=== PATIENT | male | born 1960 | race Hispanic/Latino ===

== ENCOUNTER 2022-07-05 09:55 | Emergency (ER) | payer OTHER, MEDICARE ==
[~2022-07-05] VITALS: Ht 167.6 cm; Wt 97.5 kg
[~2022-07-05 09:55] MED LIST: OMEP20TA2 PO
[2022-07-05] MEDS ORDERED: LACTATED RINGERS 1000ML 1,000 ML IV ONE (10:30)
[2022-07-05 10:31] LABS: BASOPHILS % (AUTO) 0.7 % (0.0-5.0); HEMATOCRIT 43.8 % (42-54); LYMPHOCYTES % (AUTO) 26.7 % (21.0-51.0); MEAN CORPUSCULAR HEMOGLOBIN 29.3 pg (27.0-33.0); MEAN CORPUSCULAR HGB CONC 32.4 g/dL (32.0-36.0); MEAN CORPUSCULAR VOLUME 90.3 fL (79-99); MONOCYTES % (AUTO) 6.8 % (3.0-13.0); NEUTROPHILS % (AUTO) 63.4 % (40.0-77.0); PLATELET COUNT (AUTO) 254 K/uL (130-400); RED BLOOD CELL COUNT(AUTO) 4.85 MIL/uL (4.50-6.20); RED CELL DISTRIBUTION WIDTH 13.3 % (11.0-15.5); WHITE BLOOD COUNT (AUTO) 8.5 K/uL (4.8-10.8)
[2022-07-05 10:42] LABS: CREATININE 1.6 mg/dL (0.5-1.5); POTASSIUM 3.6 mmol/L (3.5-5.1)
[2022-07-05 10:46] LABS: ALBUMIN 3.4 g/dL (3.5-5.0); TOTAL PROTEIN, SERUM 7.5 g/dL (6.0-8.3)
[2022-07-05] MEDS ORDERED: PANTOPRAZOLE 40 MG/VIAL IVP ONE (12:30)
[2022-07-05] MEDS ORDERED: PANT40TA55 PO (14:00)
[2022-07-05] MEDS ORDERED: MAG/ALUM/SIMETH 30 ML UDCUP PO ONE (14:30)
[2022-07-05] MEDS ORDERED: LIDOCAINE HCL 2% VISCOUS 15 ML UDCUP PO ONE (14:30)
[2022-07-05 14:33] VITALS: BP 143/77
== END 2022-07-05 14:47 | disposition home or self-care (01) ==
LOC: EDH 09:55
DX: K80.50 Calculus of bile duct without cholangitis or cholecystitis without obstruction (principal); K29.70 Gastritis, unspecified, without bleeding; E11.9 Type 2 diabetes mellitus without complications; E78.00 Pure hypercholesterolemia, unspecified; I10 Essential (primary) hypertension; Z88.1 Allergy status to other antibiotic agents; Z79.899 Other long term (current) drug therapy
CPT/HCPCS: 99285; 74176; 96374; 76705; 96361; 84484; 80053; 83690; 85025; 36415; 93005; J7120; C9113

== ENCOUNTER → 2024-05-31 | Outpatient (CLI) | payer OTHER, MEDICARE ==
[~2024-05-31] MED LIST changes: +ACET250T28 PO; +ACETIC ACID AU; +ATOR40TA71 PO; +BIMA2.5D4 OP; +BRIM5DRO21 OP; +CEPH500C2 PO; +CYCL30DR OP; +ESOM40CA66 PO; +FLONASE NASAL SPRAY EN; +FURO20TA4 PO; +GLIP10TA16 PO; +HYDR12.54 PO; +INSU100I15 SQ; +INSU100V12 SQ; +LACT10SO75 PO; +LOSA25TA41 PO; +METF-445 PO; +OMEG1CAP31 PO; -OMEP20TA2 PO; +POTA-200 PO; +SILD100T PO; +SIME80TA13 CHEW; +TAMS-1 PO; +TORS20TA4 PO
--- NOTE | 2024-06-07 12:17 | HMCSR ---
APPROVED REPORT EXAM: Two-dimensional and M-mode echocardiogram with Doppler and color Doppler. INDICATION ICD: I10 Essential hypertension, I50.32 2D Dimensions RVDd3.1 cmLVEF(%)67.5 (>50%)LVED Vol(simp.)92.0 mL IVSd1.5 (0.7-1.1cm)FS(%)37 %LVES Vol(simp.)36.0 mL LVDd4.3 (3.8-5.6cm)LA (2D)4.1 (1.6-4.0cm)LVEF(%, simp.)61 % PWd1.3 (0.7-1.1cm)Ao Root(2D)3.2 (2.0-3.7cm)LA ESV INDEX (4CH)21.00 mL/m2 IVSs1.5 cmLVOT diam2.3 (1.8-2.4cm)LA ESV INDEX (2CH)31.70 mL/m2 LVDs2.7 (2.5-4.0cm)IVC diam1.4 cmLA ESV INDEX (BP)25.90 mL/m2 PWs1.2 cm M-Mode Dimensions EPSS1.0 cm LA (MM)4.4 (1.6-4.0cm) Ao Root(MM)3.2 (2.0-3.7cm) Aortic Valve AoV VTI0.3 mAo Mean GR5.0 mmHgLVOT VTI0.18 m AZAR (VMAX)2.8 cm2AVA (VTI) 2.8 cm2 Mitral Valve MV E Vmax72.1 cm/sDECEL Kapd732 ms MV A Vmax71.1 cm/sP 1/2 T64 ms E/A ratio1.0MVA (PHT)3.4 cm2 TDI E/E' Xlgmgj24.6E/E' Kkwrbpz58.0 Medial E' Peak V4.10 cm/sLateral E' Peak V7.20 cm/s Pulmonary Valve PV VTI0.25 mPV Mean GR4 mmHg Tricuspid Valve RAP (EST) 3 mmHgRVSP3.0 mmHg Left Ventricle Left ventricular cavity size is normal. No regional wall motion abnormalities noted. Moderate concent lenny left ventricular hypertrophy. LVEF is 65-70%. Stage II diastolic dysfunction. Right Ventricle The right ventricle is normal size. The right ventricular systolic function is normal. Atria The left atrium size is normal. The right atrium size is normal. Aortic Valve The aortic valve is trileaflet and mildly sclerotic (non-coronary cusp). No aortic regurgitation is p resent. There is no aortic valvular stenosis. Mitral Valve Mitral valve leaflets open well. Anterior mitral valve leaflet tip moderately thickened. There is no mitral valve regurgitation noted. There is no mitral valve stenosis. Tricuspid Valve The tricuspid valve is normal in structure. There is no tricuspid valve regurgitation noted. Pulmonic Valve The pulmonary valve is normal in structure. There is no pulmonic valvular regurgitation. Great Vessels The aortic root is normal in size. The IVC is normal in size and collapses >50% with inspiration. Pericardium There is no pericardial effusion. Other Information Quality : Adequate Conclusion Left ventricular cavity size is normal. Moderate concentric left ventricular hypertrophy. LVEF is 65-70%. No regional wall motion abnormalities noted. Stage II diastolic dysfunction. The aortic valve is trileaflet and mildly sclerotic (non-coronary cusp). No aortic regurgitation is present. Mitral valve leaflets open well. Anterior mitral valve leaflet tip moderately thickened. There is no mitral valve regurgitation noted. There is no pericardial effusion.
== END | disposition home or self-care (01) ==
LOC: RAH 14:23
PROVIDERS: ATTEND Internal Medicine Cardiovascular Disease
DX: I08.0 Rheumatic disorders of both mitral and aortic valves (principal); I11.0 Hypertensive heart disease with heart failure; I50.32 Chronic diastolic (congestive) heart failure
CPT/HCPCS: 93306